=== PATIENT | female | born 1960 | race Caucasian/White ===

== ENCOUNTER 2021-04-21 07:35 | Emergency (ER) | payer BC, SELFPAY ==
[2021-04-21] VITALS (44 sets, daily range): BP systolic 125–241; BP diastolic 84–173; PULSE 80–110; RESP 11–33; TEMP 36.8; O2SAT 91–99
--- NOTE | 2021-04-21 07:30 | RT.EKG_ITS ---
APPROVED REPORT Exam: Resting ECG Reason for Exam: possible stroke Patient Location: E HR:88 bpm ECG Measurements Heart Rate 88 AXIS SD 171 P 57 QRSd 143 QRS -41 QT 442 T 115 QTc 534 Conclusion Sinus rhythm...normal P axis, V-rate 60- 99 Probable left atrial enlargement...P >50mS, <-0.10mV V1 Left bundle branch block...QRSd>120, broad/notched R ST elevation secondary to IVCD...Multiple VCG criteria. Sinus. LBBB. No old EKG to compare. No STEMI.
--- NOTE | 2021-04-21 08:00 | DI.CT_ITS ---
Exam(s) CT HEAD - STROKE PROTOCOL EXAM: CT HEAD - STROKE PROTOCOL CLINICAL HISTORY: Left sided weakness, slurred speech. TECHNIQUE: Imaging Protocol: Axial computed tomography images with coronal and sagittal reformatted images were created and reviewed COMPARISON: No exams were available for comparison FINDINGS: There are no skull fractures nor fluid in the visualized paranasal sinuses. There is a prominent acute intraaxial hemorrhage in the right basal ganglia which measures approxima tely 3.4 cm AP by 3.1 cm wide by 2.7 cm craniocaudal. There is surrounding edema and some mass effec t upon the ipsilateral right lateral ventricle. Approximately 1 millimeter shift to the left side. There no other areas of hemorrhage, intra nor extra axial. Vascular calcification noted within the intracavernous internal carotid arteries as well as both vert ebral arteries at the skull base. IMPRESSION: Prominent right-sided intra-axial hemorrhage as described above. This is in the region of the right basal ganglia. Report called by myself to ER physician. RADIATION DOSE DELIVERED: 720.8mGy.cm Total DLP DATA REPOSITORY: All CT scans at this facility are submitted to the National Radiology Data Registry (NRDR) Dose Index Registry (DIR) with the [employer] (ACR). RADIATION OPTIMIZATION: All CT scans at this facility use at least one of these dose optimization te chniques: automated exposure control; mA and/or kV adjustment per patient size (includes targeted exa ms where dose is matched to clinical indication); or iterative reconstruction.
--- NOTE | 2021-04-21 08:04 | W.ED.GENAD ---
Discharge Plan Disposition Patient Disposition: [facility] Condition: Serious Discharge Details Clinical Impression: Acute cerebral hemorrhage Primary Care Provider: Unknown,Unknown ED Provider: Xena Anderson Home Meds and New Rx's Prescriptions: No Action No Known Home Meds RF: 0 Discharge Data Discharge Date/Time-TO BE ENTERED AT DEPARTURE: 04/21/21 11:38 Medical Decision Making <Xena Anderson - Last Filed: 04/21/21 12:39> 60-year-old female presents to the ER accompanied by her with chief complaint of altered mental status. reports that he noticed patient not acting herself on Wednesday. He reports that she was not responding to her or talking like she normally does. He reports that incontinence of urine began today. Upon initial exam patient is awake and alert and confused. She is not sure of the situation. She does not have any focal gross neuro deficits noted on exam. No facial droop, cranial nerves II through XII intact. No pronator drift. Intact [id number]. She denies any head injuries, nausea, vomiting, diarrhea fever chills, chest pain or headache. She is a daily smoker, endorses alcohol none in the last 24 h. She does not take any daily medications. Past surgical history includes hysterectomy. Work-up ordered including CBC, CMP,UA, UDS, cardiac work-up CT head and chest x-ray. EKG was reviewed by Corinne Castellanos DO ER attending, please see her official report. No old EKG available for review. EKG shows left bundle branch block. 0852: Spoke with radiologist Dr. Oviedo regarding head CT there is approximately three-point centimeter by 4 cm acute hemorrhage to the right basal ganglia area. 0854: [facility] transfer center notified, for transfer request. Images pushed. FINDINGS: There are no skull fractures nor fluid in the visualized paranasal sinuses. There is a prominent acute intraaxial hemorrhage in the right basal ganglia which measures approximately 3.4 cm AP by 3.1 cm wide by 2.7 cm craniocaudal. There is surrounding edema and some mass effect upon the ipsilateral right lateral ventricle. Approximately 1 millimeter shift to the left side. There no other areas of hemorrhage, intra nor extra axial. Vascular calcification noted within the intracavernous internal carotid arteries as well as both vertebral arteries at the skull base. IMPRESSION: Prominent right-sided intra-axial hemorrhage as described above. This is in the region of the right basal ganglia Discussed CT findings with patient and verbalized understanding. I did discuss plan for transfer to [facility] or [facility] pending on bed availability. They verbalized understanding. Nicardipine drip at 5 mg an hour to titrate for blood pressure control ordered and 1 g of Keppra. BP 225/121 HR 85 O2 sat 94% RA 0929: [facility] denied due to bed capacity. Call made to [facility] will call back. 0937: Spoke with Ryne Azul MD who is Floor Director supervisor production department, in ED, Neurosurgery to call back, if they accept, will transfer ED to ED. 1002: Spoke with Dr. Farrell, he recommends keep SBP less than 140, will speak with ED MD Dr. Herrera who recommends less than [address] Herrera accepts patient at this time. Nicardipine titrated up to 7.5 mg instructed nurse to titrate every 5-10 minutes to keep SBP 160 or less. Blood pressure creeping up to 180 systolic instructed nurse to titrate another 2.5 mg for a total of 10 mg an hour. Patient to be flown out by [facility] for transfer to [facility] ED. 1132: [facility] here for patient transfer. BP 147/92 <Corinne Castellanos DO - Last Filed: 04/22/21 15:12> I have seen and examined this patient. I discussed case and reviewed note with the DIRECTOR STATISTICAL PROGRAMMING Xena Anderson and I agree with plan and note as documented. Confusion and ataxia x [address] notes acute R intra-axial brain hemorrhage. Stat [facility] consult/transfer initiated. Patient oriented x3 but slowed in her responses. Airway intact. She has no focal deficits on exam. Blood pressure hypertensive at 226/121. Will start nicardipine drip. [facility] does not have capacity to accept. [facility] accepted for transfer. BP improved prior to transfer by [facility]. HPI <Xena Anderson - Last Filed: 04/21/21 12:39> General Mode of arrival: wheelchair. Date/Time Provider Initiated Documentation: 04/21/21 08:00. Limitations to Documentation: altered mental status. Information obtained by: patient, family and RN notes reviewed. HPI Narrative: 60-year-old female presents to the ER accompanied by her with chief complaint of altered mental status. reports that he noticed patient not acting herself on Wednesday. He reports that she was not responding to her or talking like she normally does. He reports that incontinence of urine began today. Upon initial exam patient is awake and alert and confused. She is not sure of the situation. She does not have any focal gross neuro deficits noted on exam. No facial droop, cranial nerves II through XII intact. No pronator drift. Intact [id number]. She denies any head injuries, nausea, vomiting, diarrhea fever chills, chest pain or headache. She is a daily smoker, endorses alcohol none in the last 24 h. She does not take any daily medications. Past surgical history includes hysterectomy. Related Data Home Medications Medication Instructions Recorded Confirmed Unknown [No Known Home Meds] 04/21/21 04/21/21 Allergies Allergy/AdvReac Type Severity Reaction Status Date / Time No Known Allergies Allergy Unverified 04/21/21 08:03 General Stated Complaint: CVA/TIA JASON: 2 Review of Systems <Xena Anderson - Last Filed: 04/21/21 12:39> All systems reviewed & are unremarkable except as noted in HPI and below Constitutional Constitutional: Reports fatigue, Denies fever(s), Denies headache(s) and Reports weakness Eyes Eyes: Denies blurry vision, Denies change in vision and Denies diplopia ENT Ears, Nose, Mouth, and Throat: Denies headache(s) Cardiovascular Cardiovascular: Denies chest pain, Denies chest pain at rest, Denies syncope, Denies rapid heart rate, Denies pedal edema, Denies leg edema, Denies lightheadedness, Denies palpitations and Denies dyspnea Respiratory Respiratory: Reports cough, Denies hemoptysis, Denies dyspnea and Denies wheezing Gastrointestinal Gastrointestinal: Denies abdominal pain, Denies cramping, Denies diarrhea, Denies nausea and Denies vomiting Genitourinary Genitourinary: Reports urinary incontinence Musculoskeletal Musculoskeletal: Reports abnormal gait Neurologic Neurologic: Reports abnormal speech, Reports abnormal gait, Reports behavioral changes, Reports confusion, Denies syncope, Denies headache(s) and Reports weakness Psychiatric Psychiatric: Reports behavioral changes and Reports confusion Endocrine Endocrine: Reports fatigue and Denies palpitations Allergic/Immunologic Allergic/Immunologic: Denies wheezing PFS <Xena Anderson - Last Filed: 04/21/21 12:39> Active Problem List (Updated 04/21/21 @ 10:16 by Xena Anderson) Acute cerebral hemorrhage (Acute) Social History Smoking/Tobacco Use Status: Current every day Tobacco Type: cigarettes Smoking risk assessment performed?: Yes Alcohol Intake: current Alcohol Intake frequency: 3 or more drinks per day Alcohol type: hard liquor Drug use: Daily Substance use type: marijuana Do you feel safe at home: Yes Do you feel safe in your relationship?: Yes Exam <Xena Anderson - Last Filed: 04/21/21 12:39> Narrative Exam Narrative: Constitutional: Alert and oriented x3. Appears stated age. Normal body habitus. Head: Normocephalic, no trauma. Eyes: Pupils PERRL, Red reflex noted, EOM's intact. Eyelids symmetrical without lesions, discharge, or swelling. ENT: Bilateral TM's WNL, External ear normal to inspection, no mastoid TTP, swelling, or erythema, Nasal turbinates WNL, no nasal discharge. Normal dentition, Posterior pharynx WNL, no exudate. Chest: RRR, Normal S1, S2, distal pulses intact. Resp: Lungs clear to auscultation bilaterally, no wheezes, rales, or rhonchi. Abdomen: Soft, non-distended, Normoactive bowel sounds all 4 quads. Musculoskeletal: Normal gait, 5/5 strength to all four extremities. Skin: No suspicious rashes or lesions. Capillary refill less than 2 sec. Neurologic: Cranial nerves II-XII intact. Alert and oriented x 2. Motor: No deficits noted. Sensory: Intact bilaterally all 4 extremities. Reflexes: DTR's intact bilaterally. No pronator drift, intact dorsiflexion plantarflexion, intact [id number] bilaterally. Sales And Marketing Administrator equal upper extremities bilaterally. Hematologic/Lymphatic: No ecchymosis, no lymphadenopathy. Course <Xena Anderson - Last Filed: 04/21/21 12:39> Vital Signs Vital signs: Vital Signs Temperature 36.8 C 04/21/21 07:41 Pulse 88 04/21/21 07:41 Respiratory Rate 16 04/21/21 07:41 Blood Pressure 214/98 H 04/21/21 07:41 Pulse Oximetry 91 L 11/29/21 07:41 Temperature 36.8 C 04/21/21 07:41 Temperature Source Temporal Artery Scan 04/21/21 07:41 Pulse 88 04/21/21 07:41 Respiratory Rate 22 04/21/21 07:51 Respiratory Effort Non-Labored 04/21/21 07:51 Respiratory Depth Normal 04/21/21 07:51 Respiratory Pattern Normal 04/21/21 07:51 Blood Pressure 214/98 H 04/21/21 07:41 Blood Pressure Position Supine 04/21/21 07:41 Pulse Oximetry 91 L 04/21/21 07:41 Oxygen Delivery Method Room Air 04/21/21 07:41 Oxygen Flow Rate 0 04/21/21 07:41 Pain Level 0 04/21/21 07:41 Critical Care Time <Xena Anderson - Last Filed: 04/21/21 12:39> Critical Care Time Critical Care Time: Yes Total Critical Care Time: 60 Attestation: I spent greater than 35 minutes addressing this patient's acute life threatening illness. This time was spent engaged in actions directly related to the patient's care. Failure to initiate these interventions would have likely resulted in clinically significant or life threatening deterioration in the patients condition. PAWSS <Xena Anderson - Last Filed: 04/21/21 12:39> Have you Been Recently Intoxicated or Drunk Within the Last 30 days?: No Have you Ever Experienced Previous Episodes of Alcohol Withdrawal?: No Have you ever Experienced Withdrawal Seizures?: No Have you ever Experienced Delirium Tremens(DT)s?: No Have you ever undergone Alcohol Rehabilitation Treatment (i.e, inpt ot outpatient treatment programs)?: No Have you ever Experienced Blackouts?: No Have you ever Combined Alcohol with other Downers within the last 90 days?: No Have you ever Combined Alcohol with any other Substance of Abuse during the last 90 days?: No Evidence of Increased Autonomic Activity (i.e. HR>120, tremor, sweating, agitation, nausea)?: No Result: 0
--- NOTE | 2021-04-21 08:15 | DI.RAD_ITS ---
Exam(s) XR CHEST 1V IN DI DEPT EXAM: XR CHEST 1V IN DI DEPT CLINICAL HISTORY: AMS, Left sided weakness. TECHNIQUE: 2D digital imaging was performed. COMPARISON: No exams were available for comparison FINDINGS: Heart size is upper normal. The mediastinum is not widened. Lungs are clear. No infiltrates nor obvious pleural effusions. IMPRESSION: No acute pulmonary findings on this single AP portable view of the chest. DATA REPOSITORY: RADIATION DOSE DELIVERED: All CT scans at this facility use at least one of these dose optimization techniques: automated exposure control; mA and/or kV adjustment per patient size (includes targeted e xams where dose is matched to clinical indication); or iterative reconstruction.
[2021-04-21 08:18] LABS: Abs Immature Grans 0.04 10^3/uL (0.0-0.06); Absolute Basophil Count 0.07 10^3/uL (0.0-0.2); Absolute Eosinophil Count 0.07 10^3/uL (0.0-0.7); Absolute Lymphocyte Count 2.39 10^3/uL (1.2-3.4); Absolute Monocyte Count 0.82 10^3/uL (0.1-0.8); Basophils % 0.6; Eosinophils % 0.6; HCT 53.7 % (36.0-46.0); HGB 17.9 g/dL (11.2-15.7); Immature Grans % 0.3; Lymphocytes % 20.7; MCH 31.6 pg (27.0-33.0); MCHC 33.3 % (32.0-36.0); MCV 94.9 fL (80-95); MPV 10.5 fL (8.0-11.0); Monocytes % 7.1; Neutrophils % 70.7; Nucleated RBC 0 %; Platelet Count 336 10^3/uL (130-400); RBC 5.66 10^6/uL (3.93-5.22); RDW 12.3 % (11.7-14.6); RDW-SD 43.3 fL; WBC 11.53 10^3/uL (4.4-10.8)
[2021-04-21 08:25] LABS: Absolute Neutrophil Count 8.15 10^3/uL (1.2-6.7)
[2021-04-21 08:48] LABS: ETHANOL BLOOD < 3.0 mg/dL (<10)
[2021-04-21 08:54] LABS: ALT 51 U/L (14-59); AST 40 U/L (15-37); Albumin 4.2 g/dL (3.4-5.0); Alkaline Phosphatase 112 U/L (46-116); Anion Gap 10.6 mmol/L (3-11); BUN 10 mg/dL (7-18); Bilirubin, Total 0.8 mg/dL (0.2-1.0); CO2 26.4 mmol/L (21.0-32.0); CREATININE 0.8 mg/dL (0.55-1.02); Chloride 101 mmol/L (98-107); Glucose 131 mg/dL (74-106); Magnesium 1.9 mg/dL (1.8-2.4); Sodium 138 mmol/L (136-145); Total Protein 8.2 g/dL (6.4-8.2); Troponin I < 0.05 ng/mL (<0.06)
[2021-04-21 09:05] LABS: Bilirubin Negative (Negative); Blood Negative (Negative); Clarity Clear (Clear); Glucose Negative (Negative); Ketones Negative (Negative); Leukocyte Esterase Negative (Negative); Nitrite Negative (Negative); Urobilinogen 0.2 EU/dL (Up TO 0.2)
[2021-04-21 09:13] LABS: Bacteria Negative HPF (Negative); C & S Indicated? No; Casts 0-2 Hyaline LPF (Negative); Crystals Negative HPF (Negative); Epithelial Cells Rare HPF (Negative); Mucus Trace (Negative); RBC Negative HPF (0-2); WBC Negative HPF (0-5)
[2021-04-21] MEDS: levETIRAcetam 1,000 MG in Normal Saline 100 ML 400 MG IVPB (09:13)
[2021-04-21 09:18] LABS: *AMPHETAMINES SCREEN URINE Negative (Negative); *BARBITURATES SCREEN URINE Negative (Negative); *BENZODIAZEPINES SCREEN URINE Negative (Negative); Cannabinoids THC Positive (Negative); Cocaine Screen,Urine Negative (Negative); METHADONE URINE SCREEN Negative (Negative); OPIATES URINE SCREEN Negative (Negative)
[2021-04-21 09:21] LABS: Tricyclic Antidepressants Negative (Negative)
[2021-04-21 09:25] LABS: PTT Activated 23.8 sec (21.0-27.5); Prothrombin Time 10.4 sec (9.3-11.0)
[2021-04-21] MEDS: Normal Saline Flush 10 ML SYR IVP (09:32)
[2021-04-21] MEDS: niCARdipine 25 MG in Normal Saline 240 ML 50 MG IV (09:32)
[2021-04-21 09:44] LABS: Source Nasal/Nares
[2021-04-21 10:25] LABS: COVID-19 PCR Negative (Negative)
[2021-04-21 11:08] LABS: Troponin I < 0.05 ng/mL (<0.06)
== END 2021-04-21 11:38 ==
PROVIDERS: Physician Assistant; Emergency Provider Registered Nurse Emergency
DX: I61.8 Other nontraumatic intracerebral hemorrhage (principal); Z20.822 Contact with and (suspected) exposure to COVID-19; Z03.818 Encounter for observation for suspected exposure to other biological agents ruled out
CPT/HCPCS: 36415; 80053; 80307; 82962; 87635; 93005; 96365; 96366; 99291; 70450; 71045; 80320; 81003; 81015; 83735; 84484; 85025; 85610; 85730; 93010; J1953; J3490

== ENCOUNTER 2021-05-19 11:07 | Outpatient (REF) | payer BC, SELFPAY ==
[2021-05-19 18:32] LABS: Abs Immature Grans 0.03 10^3/uL (0.0-0.06); Absolute Basophil Count 0.08 10^3/uL (0.0-0.2); Absolute Eosinophil Count 0.13 10^3/uL (0.0-0.7); Absolute Lymphocyte Count 2.21 10^3/uL (1.2-3.4); Absolute Monocyte Count 0.81 10^3/uL (0.1-0.8); Absolute Neutrophil Count 7.31 10^3/uL (1.2-6.7); Basophils % 0.8; Eosinophils % 1.2; HCT 47.7 % (36.0-46.0); HGB 15.8 g/dL (11.2-15.7); Immature Grans % 0.3; Lymphocytes % 20.9; MCH 30.9 pg (27.0-33.0); MCHC 33.1 % (32.0-36.0); MCV 93.3 fL (80-95); MPV 10.9 fL (8.0-11.0); Monocytes % 7.7; Neutrophils % 69.1; Nucleated RBC 0 %; Platelet Count 321 10^3/uL (130-400); RBC 5.11 10^6/uL (3.93-5.22); RDW 11.8 % (11.7-14.6); RDW-SD 40.8 fL; WBC 10.57 10^3/uL (4.4-10.8)
[2021-05-19 19:00] LABS: ALT 36 U/L (14-59); AST 23 U/L (15-37); Albumin 4.2 g/dL (3.4-5.0); Alkaline Phosphatase 99 U/L (46-116); Anion Gap 9.7 mmol/L (3-11); BUN 26 mg/dL (7-18); Bilirubin, Total 0.5 mg/dL (0.2-1.0); CO2 29.3 mmol/L (21.0-32.0); Calcium 9.8 mg/dL (8.5-10.1); Calculated LDL 147 mg/dL (<100); Chloride 97 mmol/L (98-107); Cholesterol 234 mg/dL (<200); Estimated GFR 56.95 (mL/min/1.73m2); Glucose 118 mg/dL (74-106); HDL Cholesterol 45 mg/dL (40-60); Potassium 3.7 mmol/L (3.5-5.1); Sodium 136 mmol/L (136-145); TSH (W/Ref FT4) 0.87 uIU/mL (0.36-3.74); Triglyceride 214 mg/dL (<150)
[2021-05-19 19:34] LABS: Hemoglobin A1C 5.8 % (<5.7)
[2021-05-21 09:42] LABS: Hepatitis C Ab w Rflx HCV PCR Negative (Negative)
[2021-05-21 10:11] LABS: HIV-1/2 Ag & Ab Screen Negative (Negative)
== END 2021-05-19 11:08 | disposition home or self-care (01) ==
LOC: LBN 11:07
PROVIDERS: PCP Family Medicine; Visit Provider Family Medicine
DX: I10 Essential (primary) hypertension (principal); I61.0 Nontraumatic intracerebral hemorrhage in hemisphere, subcortical; I67.1 Cerebral aneurysm, nonruptured; Z11.59 Encounter for screening for other viral diseases; Z13.6 Encounter for screening for cardiovascular disorders; Z11.4 Encounter for screening for human immunodeficiency virus [HIV]
CPT/HCPCS: 80053; 80061; 86803; 87389; 83036; 84443; 85025

== ENCOUNTER → 2021-12-25 02:11 | Outpatient (CLI) | payer BC, SELFPAY ==
--- NOTE | 2021-12-25 07:43 | DI.MRI_ITS ---
Exam(s) MR ANGIO BRAIN WO CLINICAL HISTORY: L MCA aneurysm,I67.1. TECHNIQUE: 3D nbau-ac-hzlcwy study was performed without contrast. T2 and FLAIR axial sequences wer e performed of the brain. COMPARISON: Head CT 21 April 2021. MRI brain 22 April 2021 from [facility] FINDINGS: Carotid Arteries: Petrous: Normal. Cavernous: Normal. Cerebral: Normal. Middle Cerebral Arteries: Right: No aneurysm or significant stenosis. Left: No aneurysm or significant stenosis. Anterior Cerebral Arteries: Right: No aneurysm or significant stenosis. Left: No aneurysm or significant stenosis. Posterior cerebral arteries: Right: No aneurysm or significant stenosis Left: No aneurysm or significant stenosis Vertebral Arteries: Right: No aneurysm or significant stenosis. No dissection. Left: No aneurysm or significant stenosis. No dissection.. Basilar Artery: No aneurysm or significant stenosis. Limited sequences of the brain show areas of low signal in both basal ganglia regions, right greater than left, consistent with hemosiderin deposition related to prior intracranial hemorrhage.. There i s a moderate amount of periventricular white matter signal consistent with microvascular disease. No acute hemorrhage or acute infarct suspected. IMPRESSION: No evidence of aneurysm or significant stenosis. DATA REPOSITORY:
== END ==
PROVIDERS: Visit Provider Psychiatry & Neurology Neurology
DX: I67.1 Cerebral aneurysm, nonruptured (principal)
CPT/HCPCS: 70544

== ENCOUNTER → 2022-02-25 01:38 | Outpatient (CLI) | payer BC, SELFPAY ==
--- NOTE | 2022-02-25 07:29 | DI.US_ITS ---
APPROVED REPORT EXAM: Comprehensive 2D, Doppler, and color-flow Echocardiogram Patient Location: Out-Patient Editor & Co Founder: Erin Sharp RDCS (AE) Indications: HTN, Basal ganglia hemorrhage Other Information Study Quality: Adequate Conclusion Left ventricular chamber size. Mild concentric left ventricular hypertrophy. Estimated ejection fra ction is 60%. Wall motion is normal Normal right ventricular size and systolic function Both atria are normal in size There is no structural or hemodynamically significant valvular disease Wall motion Left Ventricle The left ventricle is normal size. The left ventricular systolic function is normal. The left ventric ular ejection fraction is within the normal range. Mild concentric left ventricular hypertrophy. Ther e is normal LV segmental wall motion. There is no ventricular septal defect visualized. LVEF is 60%. Right Ventricle Right ventricle is grossly normal in size. Right ventricular systolic function is grossly normal. Atria The left atrium size is normal. The right atrium size is normal. The interatrial septum is intact wit h no evidence for an atrial septal defect. Aortic Valve The aortic valve is normal in structure. Aortic valve is trileaflet. There is no aortic valvular sten osis. No aortic regurgitation is present. Mitral Valve The mitral valve is normal in structure. No evidence of mitral valve stenosis. Trace mitral regurgita tion. Tricuspid Valve The tricuspid valve is normal in structure. There is no tricuspid valve stenosis. Trace tricuspid reg urgitation. Unable to assess PA pressure. Pulmonic Valve Pulmonic valve is not well visualized. There is no pulmonic valvular stenosis. There is no pulmonic v alvular regurgitation. Great Vessels The aortic root is normal in size. The ascending aorta is normal in size. Aortic arch is normal in ca liber. IVC is normal in size and collapses >50% with inspiration. Pericardium There is no pericardial effusion. 2D Dimensions IVSD d PLAX 1.14 cm F: 0.6-1.0 LV Vol A2C d MOD 60.5 mL LVPW d PLAX 1.12 cm F: 0.6 - 1.0 LV Vol A4C d MOD 86.0 mL LVID d PLAX 4.15 cm F: 3.8 - 5.2 LA vol/ BSA A2C s A-L 26.0 mL/m2 LVDs 2.80 cm F: 2.2 - 3.5 LA vol/ BSA A4C s A-L 15.3 mL/m2 Ao Root d 2.54 cm F: 2.7 - 3.3 LA Vol/ BSA Biplane s A-L 22.5 mL/m2 RA Area A4C 9.29 cm2 LA Area A4C s MOD 11.90 cm2 RA Vol/ BSA A4C s A-L 8.7 mL/m2 LA Area A2C s MOD 17.52 cm2 Ao Asc Diam d 3.07 cm F: 2.3 - 3.1 LV EF A4C MOD 58.3 % LV EF Teichholz 59.7 % LV EF A2C MOD 60.5 % LVEF (Palomino's) 60.29 % F: 54 - 74 LV EF Biplane MOD 60.3 % LV Volume 58.01 mL F: 46 - 106 SV 45.94 mL LV Volume Index 30.37 mL/m2 F: 29 - 61 SV Index 24.01 mL/m2 LV Vol Biplane MOD 76.2 mL FS 31.40 % M-Mode TAPSE 2.08 cm (M/F) >1.7 LV Diastology MV E' medial 0.075 (>0.07 m/s) E/A Ratio 0.8 LV E/e MED 9.25 (<14) MV E Vmax 0.69 (0.4-1.3 m/s) MV E' lateral 0.091 (>0.1 m/s) MV A Vmax 0.85 (0.4-1.3 m/s) LV E/e LAT 7.60 (<14) MV E/A Ratio 0.79 MV E/E' medial 9.25 MV E/E' lateral 7.60 Aortic Valve LVOT Area 3.33 cm2 AoV Area Vmax 2.97 cm2 LVOT Vmax 1.25 m/s AoV Area/ BSA (Vmax) 1.55 cm2/m2 LVOT Mean Sim. 0.81 m/s MARY Mean Sim. 2.77 cm2 LVOT Peak Grad 6.2 mmHg MARY Mean Sim. Index 1.45 cm2/m2 LVOT Mean Grad 3.1 mmHg LVOT VTI 0.290 m LVOT Diam s 2.05 cm AoV Vmax 1.40 m/s Velocity Ratio 0.89 AoV Mean Sim. 0.98 m/s AoV Peak Grad 7.8 mmHg LVOT SV 96.56 mL AoV Mean Grad 4.3 mmHg AoV VTI 0.277 m AoV Area VTI 3.49 cm2 AoV Area/ BSA (VTI) 1.82 cm/m2 Mitral Valve MV DT 303 (160-240 msec) MV PHT 88 msec MV Area PHT 2.51 cm2 MV VTI 0.334 m MV Area VTI 2.89 (4.0-6.0 cm2) Pulmonary Valve PV Vmax 0.68 (0.5-1.5 m/s) RVOT Peak Gr. 0.65 mmHg PV Peak Grad 1.9 mmHg RVOT Mean Gr. 0.35 mmHg PV Mean Grad 1.2 mmHg RVOT VTI 0.102 m PV VTI 0.172 m RVOT Vmax 0.40 m/s
== END ==
PROVIDERS: PCP Family Medicine; Visit Provider Family Medicine
DX: I10 Essential (primary) hypertension (principal); I61.0 Nontraumatic intracerebral hemorrhage in hemisphere, subcortical
CPT/HCPCS: 93306

== ENCOUNTER 2022-06-09 10:34 | Outpatient (CLI) | payer BC, SELFPAY ==
[2022-06-09 12:29] LABS: HGB 15.5 g/dL (11.2-15.7); MCH 30.5 pg (27.0-33.0); MCHC 34.4 % (32.0-36.0); MCV 88 fL (80-95); MPV 10.5 fL (8.0-11.0); Platelet Count 407 10^3/uL (130-400); RBC 5.09 10^6/uL (3.93-5.22); RDW 12.2 % (11.7-14.6); WBC 9.62 10^3/uL (4.4-10.8)
[2022-06-09 13:10] LABS: ALT 37 U/L (14-59); AST 29 U/L (15-37); Alkaline Phosphatase 98 U/L (46-116); Anion Gap 7.4 mmol/L (3-11); BUN 19 mg/dL (7-18); Bilirubin, Total 0.5 mg/dL (0.2-1.0); CO2 29.6 mmol/L (21.0-32.0); Calcium 9.7 mg/dL (8.5-10.1); Calculated LDL 112 mg/dL (<100); Chloride 95 mmol/L (98-107); Cholesterol 197 mg/dL (<200); Estimated GFR 64.49 (mL/min/1.73m2); Glucose 107 mg/dL (74-106); HDL Cholesterol 45 mg/dL (40-60); Potassium 3.2 mmol/L (3.5-5.1); Sodium 132 mmol/L (136-145); TSH (W/Ref FT4) 1.39 uIU/mL (0.36-3.74); Triglyceride 202 mg/dL (<150); Vitamin B12 633 pg/mL (193-986)
[2022-06-14 14:15] LABS: Metanephrine, Free <0.20 nmol/L (<0.50); Normetanephrine, Free 1.1 nmol/L (<0.90)
== END 2022-06-09 10:35 | disposition home or self-care (01) ==
LOC: LOS 10:34
PROVIDERS: Family Medicine; PCP Family Medicine; Referring Provider Family Medicine; Visit Provider Family Medicine
DX: E78.5 Hyperlipidemia, unspecified (principal); I10 Essential (primary) hypertension; I61.0 Nontraumatic intracerebral hemorrhage in hemisphere, subcortical; R26.89 Other abnormalities of gait and mobility
CPT/HCPCS: 36415; 80053; 80061; 85027; 82607; 83835; 84443

== ENCOUNTER 2023-03-12 02:04 | Outpatient (CLI) | payer BC, SELFPAY ==
[2023-03-12 13:08] LABS: HGB 14.7 g/dL (11.2-15.7); MCH 31.1 pg (27.0-33.0); MCHC 34.2 % (32.0-36.0); MCV 91 fL (80-95); MPV 10.7 fL (8.0-11.0); Platelet Count 300 10^3/uL (130-400); RBC 4.73 10^6/uL (3.93-5.22); RDW 12.3 % (11.7-14.6); RDW-SD 41.2 fL; WBC 6.55 10^3/uL (4.4-10.8)
[2023-03-12 13:49] LABS: ALT 37 U/L (14-59); AST 27 U/L (15-37); Albumin 3.6 g/dL (3.4-5.0); Alkaline Phosphatase 85 U/L (46-116); Anion Gap 7.2 mmol/L (3-11); BUN 14 mg/dL (7-18); Bilirubin, Total 0.5 mg/dL (0.2-1.0); CO2 28.8 mmol/L (21.0-32.0); CREATININE 1.1 mg/dL (0.55-1.02); Calcium 9.7 mg/dL (8.5-10.1); Chloride 102 mmol/L (98-107); Estimated GFR 57.52 (mL/min/1.73m2); Glucose 132 mg/dL (74-106); Potassium 4.1 mmol/L (3.5-5.1); Sodium 138 mmol/L (136-145); Total Protein 7.6 g/dL (6.4-8.2)
== END 2023-03-12 02:05 | disposition home or self-care (01) ==
LOC: LBO 02:04
PROVIDERS: PCP Family Medicine; Visit Provider Family Medicine
DX: I10 Essential (primary) hypertension (principal); R56.9 Unspecified convulsions
CPT/HCPCS: 36415; 80053; 85027

== ENCOUNTER 2023-03-12 02:24 | Outpatient (CLI) | payer BC, SELFPAY ==
--- NOTE | 2023-03-15 16:09 | PDOC.EEG_ITS ---
Neurology EEG EEG: [facility] Department of Neurology LONG-TERM AMBULATORY EEG REPORT Date of Recordin03/12/23 at 13:34:05 to 03/13/23 at 08:20:12 Interpreting Physician: Dr. Farida Montero PCP/Referring Provider: Dr. Patricia Pineda Reason for study: Ms. Flower is a 62 year-old with prior hemorrhagic stroke and recent event concerning for seizure. Current Medications: Home Medications Medication Instructions Recorded Confirmed Type amlodipine 10 mg tablet 10 mg PO DAILY #90 tabs 05/21/22 03/08/23 Rx potassium chloride 20 mEq 20 meq PO DAILY #90 tabs 06/09/22 03/08/23 Rx tablet,extended release chlorthalidone 25 mg tablet 25 mg PO DAILY #90 tabs 12/21/22 03/08/23 Rx losartan 100 mg tablet 100 mg PO DAILY #90 tabs 01/16/23 03/08/23 Rx metoprolol succinate 50 mg 75 mg (1.5 x 50 mg) PO DAILY #135 01/16/23 03/08/23 Rx tablet,extended release 24 hr tabs METHODS: An 18-channel digitized electroencephalogram was recorded in the ambulatory setting with video. The 10/20 international system of electrode placement was used and bipolar and referential electrode montages were recorded. In addition to EEG the patient was monitored for EKG and by video. Activation procedures of photic stimulation and hyperventilation were performed if applicable. The duration of the recording was ~18.5 hours. DESCRIPTION OF EEG: Waking background activity: During maximal wakefulness a 9-Hz posterior background rhythm was present which was well-modulated, symmetrical, reactive to eye opening, and of moderate voltage. Faster frequencies were present in the bilateral anterior head regions. There was a normal anterior-posterior voltage gradient. Drowsy and sleeping background activity: During drowsiness, there was attenuation of the posterior dominant background rhythm and vertex waves. Normal stage II and III sleep was present with symmetrical sleep spindles, K- complexes, and vertex waves with slowing of the background rhythm to delta/theta frequencies. REM sleep manifested by rapid lateral eye movements and faster background rhythms was recorded. Arousal was unremarkable. Interictal abnormalities: Rare moderate-amplitude, polymorphic, generalized delta slowing during wakefulness. Ictal findings: No events recorded. Activating Procedures: Photic stimulation was performed which produced no posterior driving response. Hyperventilation was not performed. EKG: EKG revealed normal sinus rhythm. INTERPRETATION: This long-term EEG is abnormal due to intermittent mild generalized, non- rhythmic slowing during wakefulness. PRIOR EEG: none CLINICAL CORRELATION: The background slowing is suggestive of a mild diffuse cerebral encephalopathy of broad differential including toxic-metabolic etiology. No focal regions of cerebral dysfunction or epileptiform activity was present. Epilepsy remains a clinical diagnosis and a normal EEG does not rule out epilepsy. Clinical correlation is advised. Farida Montero MD Date of service: 03/12/23 Coding CPT Codes EEG 12-26 Hours w/video - [id number])
== END 2023-03-12 02:25 | disposition home or self-care (01) ==
LOC: RT 02:24
PROVIDERS: PCP Family Medicine; Visit Provider Family Medicine
DX: R94.01 Abnormal electroencephalogram [EEG] (principal); I69.398 Other sequelae of cerebral infarction; I61.0 Nontraumatic intracerebral hemorrhage in hemisphere, subcortical
CPT/HCPCS: 95714; 95720

== ENCOUNTER 2024-03-03 01:15 | Outpatient (CLI) | payer BC, SELFPAY ==
--- NOTE | 2024-03-03 07:30 | DI.MRI_ITS ---
Exam(s) MR ANGIO BRAIN WO EXAM: MR ANGIO BRAIN WO CLINICAL HISTORY: L MCA aneurysm,I67.1 TECHNIQUE: Performed on 1.5 mar unit with [id number] sequence. COMPARISON: CT CT ANGIO HEAD NECK from 04/21/2021 MR MR HEAD WO CONTRAST from 04/22/2021 MR MR ANGIO BRAIN WO from 12/25/[address] ANGIO HEAD from 03/04/2023 FINDINGS: ANTERIOR CIRCULATION: Both internal carotid arteries are patent in the skull base and carotid canals as well as within the cavernous sinuses. The supraclinoid aspects of these vessels are patent without significant stenosis nor aneurysmal dilatation. Both A1 segments are patent as are both anterior cerebral arteries and t here is no evidence of aneurysm at the level the anterior communicating artery. Both middle cerebral arteries are patent without intraluminal filling defects nor significant stenosi s and no obvious aneurysms. I do not see an obvious abnormality on the left side as suggested from r ecent outside report nor obvious MCA branch occlusion. POSTERIOR CIRCULATION: Both vertebral arteries contribute to the formation of the basilar artery at the skull base. The rig ht posterior inferior cerebellar artery originates from the distal vertebral artery. The left drying oven attendant ior inferior cerebellar artery originates from the inferior aspect of the basilar artery. The basila r artery ascends in the midline with normal luminal diameter and no significant focal stenosis. Dist ally it gives off patent bilateral superior cerebellar arteries and above this level terminates as pa tent bilateral posterior cerebral arteries which exhibit no significant stenosis. There is no aneury sm of the tip of the basilar artery. IMPRESSION: 1. Patent intracranial arteries. No evidence of obvious aneurysms nor occlusions nor significant regina nosis. 2. Given the suggestion on outside reading and the significant findings on prior MRI studies includin g past an intracranial hemorrhage in right basal ganglia I feel that it would be prudent to perform c onventional MRI with including diffusion imaging sequence at this time in case there has been recent abnormality in the territory of the left middle cerebral artery branches to determine if there has be en recent ischemic event in this territory. DATA REPOSITORY:
--- NOTE | 2024-03-03 07:30 | DI.US_ITS ---
Exam(s) US CAROTID EXAM: US CAROTID CLINICAL HISTORY: R carotid stenosis.I65.21. TECHNIQUE: Ultrasound carotids performed using grayscale, color-flow, and spectral Doppler imaging. COMPARISON: No exams were available for comparison FINDINGS: RIGHT CAROTID ARTERY: Plaque: Foci of calcific plaque noted along the tam of the common carotid artery as well as proxima l internal carotid artery. No significant stenosis visually. Focal calcific plaque at the proximal right external carotid artery. LEFT CAROTID ARTERY: Plaque: Multiple foci of calcific plaque along the common carotid artery and proximal internal caroti d artery. No significant stenosis visually. Velocity elevation: Elevated systolic velocity noted in the external carotid arteries, greater on the right. VERTEBRAL ARTERIES: Antegrade flow. IMPRESSION: No evidence for hemodynamically significant internal carotid artery stenosis. Criteria for Carotid Stenosis: Normal: ICA PSV <125 cm/s no plaque or intimal thickening is visible. <50% stenosis: ICA PSV <125 cm/s and plaque or intimal thickening is visible. 50-69% stenosis: ICA PSV is 125-250 cm/s and plaque is visible. >70% stenosis to near occlusion: ICA PSV >250 cm/s with visible plaque and luminal narrowing. DATA REPOSITORY:
== END 2024-03-03 01:35 ==
LOC: DI 01:15
PROVIDERS: PCP Family Medicine; Visit Provider Psychiatry & Neurology Neurology
DX: I67.1 Cerebral aneurysm, nonruptured (principal)
CPT/HCPCS: 70544; 93880

== ENCOUNTER 2024-04-03 03:11 | Outpatient (CLI) | payer BC, SELFPAY ==
[2024-04-03 16:48] LABS: ALT 32 U/L (14-59); AST 22 U/L (15-37); Alkaline Phosphatase 112 U/L (46-116); Anion Gap 10.1 mmol/L (3-11); BUN 11 mg/dL (7-18); Bilirubin, Total 0.73 mg/dL (0.2-1.0); CO2 27.9 mmol/L (21.0-32.0); CREATININE 1.3 mg/dL (0.55-1.02); Calcium 9.6 mg/dL (8.5-10.1); Calculated LDL 64 mg/dL (<100); Chloride 99 mmol/L (98-107); Cholesterol 128 mg/dL (<200); Estimated GFR 46.78 (mL/min/1.73m2); Glucose 98 mg/dL (74-106); HDL Cholesterol 43 mg/dL (40-60); Potassium 4.7 mmol/L (3.5-5.1); Sodium 137 mmol/L (136-145); Total Protein 7.9 g/dL (6.4-8.2); Triglyceride 106 mg/dL (<150)
[2024-04-03 17:56] LABS: Hemoglobin A1C 6.2 % (<5.7)
[2024-04-05 11:38] LABS: Levetiracetam 20.4 mcg/mL
== END 2024-04-03 03:12 | disposition home or self-care (01) ==
LOC: LBO 03:11
PROVIDERS: PCP Family Medicine; Visit Provider Family Medicine
DX: I10 Essential (primary) hypertension (principal); R56.9 Unspecified convulsions; I69.398 Other sequelae of cerebral infarction; G40.909 Epilepsy, unspecified, not intractable, without status epilepticus; E11.9 Type 2 diabetes mellitus without complications
CPT/HCPCS: 36415; 80053; 80061; 80177; 83036

== ENCOUNTER 2025-02-23 00:22 | Outpatient (CLI) | payer BC, SELFPAY ==
[2025-02-23 16:22] LABS: ALT 30 U/L (14-59); AST 25 U/L (15-37); Albumin 3.8 g/dL (3.4-5.0); Alkaline Phosphatase 100 U/L (46-116); Anion Gap 12.8 mmol/L (3-11); BUN 10 mg/dL (7-18); Bilirubin, Total 0.7 mg/dL (0.2-1.0); CO2 27.2 mmol/L (21.0-32.0); Calcium 8.9 mg/dL (8.5-10.1); Calculated LDL 87 mg/dL (<100); Chloride 92 mmol/L (98-107); Cholesterol 151 mg/dL (<200); Estimated GFR 56.81 (mL/min/1.73m2); Glucose 103 mg/dL (74-106); HDL Cholesterol 33 mg/dL (>or=50); Potassium 4.4 mmol/L (3.5-5.1); Sodium 132 mmol/L (136-145); Total Protein 7.9 g/dL (6.4-8.2); Triglyceride 155 mg/dL (<150)
== END 2025-02-23 00:23 | disposition home or self-care (01) ==
PROVIDERS: PCP Family Medicine; Visit Provider Family Medicine
DX: I10 Essential (primary) hypertension (principal); R56.9 Unspecified convulsions
CPT/HCPCS: 36415; 80053; 80061; 80177